=== PATIENT | male | born 1960 | race Caucasian/White ===

== ENCOUNTER → 2021-11-14 | Outpatient (CLI) | payer OTHER ==
--- NOTE | 2021-11-15 02:01 | MR ---
EXAMINATION TYPE: MR shoulder RT wo con DATE OF EXAM: 11/14/2021 COMPARISON: None HISTORY: Rt shoulder pain, hx of broken shoulder x 14 years ago Multiplanar multiecho imaging of the right shoulder with no contrast. There is hypertrophic spurring at the AC joint. The supraspinatus tendon is intact. No retraction. Bi ceps tendon is intact. Subscapularis tendon is intact. The glenoid fausot appear intact. The infraspinatus tendon is intact. There is small amount of fluid at the subscapularis tendon. The h umeral head is intact. IMPRESSION: No evidence of rotator cuff tear. There is some mild increased fluid at the supraspinatus tendon that could relate to some mild tendinitis and synovitis. No fracture.
== END | disposition home or self-care (01) ==
LOC: RADMRIMAIN 06:09
PROVIDERS: ATTEND Orthopaedic Surgery Sports Medicine
DX: M75.101 Unspecified rotator cuff tear or rupture of right shoulder, not specified as traumatic (principal)

== ENCOUNTER → 2021-12-29 | Outpatient (CLI) | payer OTHER ==
--- NOTE | 2021-12-29 07:47 | MR ---
MRI CERVICAL SPINE: CLINICAL HISTORY: Headaches with Neck pain into right arm and radiculopathy. TECHNIQUE: Multiplanar, multisequence imaging of the cervical spine is performed without and with IV contrast, cc of gadolinium was given intravenously. COMPARISON: None. FINDINGS: Sagittal images of the cervical spine show the craniocervical junction to appear within nor mal limits. The cervical and upper thoracic spinal cord is normal in course, caliber, and signal. V ertebral alignment is straightened. The vertebral body heights are normal. Moderate disc space narr owing with heterogeneous Modic type I endplate changes and mild to moderate anterior spurring C5-C6 l evel and C6-C7 levels. [id number] disc space narrowing C7-T1 level. Tiny posterior disc herniat ion minimally effaces the anterior thecal sac at T2-T3 level sagittal image 7. Axial images show C2-C3 level to appear within normal limits. Axial images at C3-C4 level show uncovertebral facet degenerative changes bilaterally causing asymmet patrice mild right-sided neural foraminal narrowing. Axial images at C4-C5 level show uncovertebral facet degenerative changes bilaterally causing moderat e right and mild left-sided neural foraminal narrowing. Axial images at C5-C6 level shows broad-based posterior spur disc complex and uncovertebral facet deg enerative changes causing moderate to advanced bilateral neural foraminal narrowing. Axial images at C6-C7 level shows broad-based spur disc complex causing moderate to severe bilateral neural foraminal narrowing. Axial images at C7-T1 level show mild broad disc protrusion minimally effacing anterior thecal sac, p atent bilateral neural foramina are seen. IMPRESSION: Straightening of cervical spine with multilevel degenerative changes greatest at C5-C6 an d C6-C7 level as detailed above.
== END | disposition home or self-care (01) ==
LOC: RADMRIMAIN 06:06
PROVIDERS: ATTEND Orthopaedic Surgery Orthopaedic Surgery of the Spine
DX: M79.12 Myalgia of auxiliary muscles, head and neck (principal); M25.78 Osteophyte, vertebrae; M50.322 Other cervical disc degeneration at C5-C6 level; M50.323 Other cervical disc degeneration at C6-C7 level
CPT/HCPCS: 72141